=== PATIENT | male | born 1980 | race Caucasian/White ===

== ENCOUNTER 2017-01-18 14:02 | Emergency (ER) | payer MEDICAID ==
[~2017-01-18] VITALS: Ht 180.3 cm; Wt 93.0 kg
--- NOTE | 2017-01-18 13:58 | Emergency Room Report ---
History of Present Illness General Source: Patient, EMS Present Illness HPI Patient 36-year-old male brought in by EMS after reported overdose on heroin. The patient had reportedly used heroin last night. He states that he had not used today. He reports having a dry mouth. He denies other substance use. He had not been vomiting. He was not given Narcan. The patient was awake alert at the time EMS arrived. The patient currently in a sober living Patient History Past Medical History: see triage record Reviewed Nursing Documentation: PMH: Agreed, PSxH: Agreed Review of Systems All Other Systems: negative except mentioned in HPI Physical Exam Sp02 EP Interpretation: reviewed, normal General Appearance: normal inspection, well appearing, no apparent distress, alert, GCS 15 Head: atraumatic ENT: normal ENT inspection, hearing grossly normal, normal voice Neck: normal inspection, full range of motion, supple, no bony tend Respiratory: normal inspection, lungs clear, normal breath sounds, no respiratory distress, no retraction, no wheezing Cardiovascular #1: regular rate, rhythm, no edema Gastrointestinal: normal inspection, normal bowel sounds, non tender, soft, no guarding, no hernia Genitourinary: no CVA tenderness Musculoskeletal: normal inspection, back normal, normal range of motion Neurologic: normal inspection, alert, oriented x3, responsive, makeup sales advisor III-XII nml as tested, speech normal Psychiatric: normal inspection, judgement/insight normal, mood/affect normal Skin: normal inspection, normal color, no rash Medical Decision Making Diagnostic Impression: Primary Impression: Drug overdose ER Course Patient presented after a reported overdose. The differential diagnosis included was not limited to opiate overdose, pulmonary edema, arrhythmia, among others. Patient's benign exam and does not appear to require any further imaging or laboratory testing at this time. EKG interpreted by me normal sinus rhythm without acute ST or T wave changes. Chest x-ray one view interpreted by me showed normal cardiac size without evident infiltrate. Patient was observed in the emergency department without any recurrence of symptoms. The patient was discharged home with there is responsible alliance party EKG Diagnostic Results Rate: normal - 96 Rhythm: NSR ST Segments: no acute changes Chest X-Ray Diagnostic Results Chest X-Ray Diagnostic Results : Chest X-Ray Ordered: Yes # of Views/Limited/Complete: 1 View Indication: Other EP Interpretation: Yes Interpretation: no consolidation, no effusion, no pneumothorax, no acute cardiopulmonary disease Impression: No acute disease Electronically Signed by: Electronically signed by Dr. Toni Prince M.D. Status: improved Disposition: HOME, SELF-CARE Condition: Stable Toni Prince Jan 18, 2017 13:58
[2017-01-18 14:48] VITALS: BP 142/72
[2017-01-18 15:55] VITALS: BP 111/67
--- NOTE | 2017-01-18 16:59 | Diagnostic Imaging Report ---
Indication: Reason For Exam: SOB Technique: One view of the chest Comparison: none Findings: Lungs and pleural spaces are clear. Heart size is normal. There is mild central bronchial wall thickening Impression: No acute process
--- NOTE | 2017-01-20 11:00 | Cardiology Report ---
APPROVED REPORT EKG Measurement Heart [id number] Normal sinus rhythm with sinus arrhythmia Normal ECG
== END 2017-01-18 16:00 | disposition home or self-care (01) ==
LOC: EDBD 14:02 → EMR 14:16
DX: T40.1X1A Poisoning by heroin, accidental (unintentional), initial encounter (principal); R68.2 Dry mouth, unspecified; R06.02 Shortness of breath
CPT/HCPCS: 71010; 93005; 99283